=== PATIENT | female | born 1965 | race Caucasian/White ===

== ENCOUNTER 2017-04-02 18:02 | Emergency (ER) | payer OTHER ==
[~2017-04-02] VITALS: Ht 170.2 cm; Wt 69.4 kg
[~2017-04-02 18:02] MED LIST: COZAAR 25 MG TA25 M1 PO; HYDROCODON-ACE1 EAC5 PO; IBUPROFEN 800800 M1 PO; KLONOPIN0.5 MG PO; LEVAQUIN 750 M750 MG PO; LEXAPRO 10 MG T10 M2 PO; PROAIR HFA8.5 GM INH; TESSALON PERLE100 MG PO; UNICOMPLEX M TA1 TA1 PO; VITAMIN D1000 UNI1 PO; ZANAFLEX4 MG PO
[2017-04-02 19:13] VITALS: BP 130/74
[2017-12-03] MEDS ORDERED: NORCO 5-325 TA1 EACH PO (09:12)
[2017-12-03] MEDS ORDERED: NEURONTIN 300300 M1 PO (12:56)
[2017-12-03] MEDS ORDERED: LOSARTAN POTASS50 MG PO (12:57)
[2017-12-03] MEDS ORDERED: LIPITOR10 MG PO (12:57)
[2017-12-03] MEDS ORDERED: D3 + K2 DOTS 11 EACH PO (12:58)
== END 2017-04-02 19:13 | disposition home or self-care (01) ==
LOC: M.ERS 18:02
DX: S61.012A Laceration without foreign body of left thumb without damage to nail, initial encounter (principal); Z98.890 Other specified postprocedural states; F17.210 Nicotine dependence, cigarettes, uncomplicated; W18.39XA Other fall on same level, initial encounter; Y93.89 Activity, other specified; Y92.89 Other specified places as the place of occurrence of the external cause; Y99.8 Other external cause status

== ENCOUNTER 2017-04-26 17:32 | Emergency (ER) | payer OTHER ==
[~2017-04-26] VITALS: Ht 170.2 cm; Wt 72.6 kg
[2017-04-26] MEDS ORDERED: CYMBALTA30 MG PO (17:46)
[2017-04-26] MEDS ORDERED: LISINOPRIL20 MG PO (17:46)
[2017-04-26 18:30] LABS: ABSOLUTE BASOPHILS 0.1 thou/uL (0.0-0.2); ABSOLUTE EOSINOPHILS 0.2 thou/uL (0.0-0.7); ABSOLUTE MONOCYTES 0.5 thou/uL (0.0-1.2); ABSOLUTE NEUTROPHILS 3.8 thou/uL (1.6-8.1); BASOPHILS 0.9 %; EOSINOPHILS 2.5 %; HEMATOCRIT 40.9 % (37.0-47.0); HEMOGLOBIN 14.5 gm/dL (12.0-15.0); LYMPHOCYTES 30.5 %; MCH 35.4 pg (26.0-34.0); MCHC 35.4 g/dL (28.0-37.0); MONOCYTES 7.6 %; MPV 8.2 fl. (7.2-11.1); NUCLEATED RBCS 0 /100WBC; PLATELET COUNT* 325 thou/uL (150-400); POLYS 58.5 %; RBC 4.09 mil/uL (4.20-5.00); RDW-CV 12.8 % (10.5-14.5); WBC 6.5 thou/uL (4.0-11.0)
[2017-04-26 18:33] LABS: URINE BILIRUBIN NEGATIVE (Negative); URINE BLOOD TRACE (Negative); URINE CLARITY CLEAR; URINE COLOR YELLOW; URINE GLUCOSE-RANDOM NEGATIVE (Negative); URINE KETONES NEGATIVE (Negative); URINE LEUKOCYTES TRACE (Negative); URINE NITRITE NEGATIVE (Negative); URINE PROTEIN NEGATIVE (Negative); URINE SPECIFIC GRAVITY 1.025 (1.005-1.030); URINE UROBILINOGEN 0.2 E.U./dl (0.2-1.0)
[2017-04-26 18:37] LABS: AMP/METHAMP Negative (Negative); BARBITURATES Negative (Negative); BENZODIAZEPINES Negative (Negative); COCAINE Negative (Negative); METHADONE Negative (Negative); OPIATES Negative (Negative); PCP Negative (Negative); THC Negative (Negative)
[2017-04-26 18:39] LABS: ANION GAP 13 mmol/L (7-16); BUN 22 mg/dL (7-18); CALCIUM 8.6 mg/dL (8.5-10.1); CHLORIDE 101 mmol/L (98-107); CO2 23 mmol/L (21-32); CREATININE 0.9 mg/dL (0.6-1.3); GLUCOSE 110 mg/dL (70-99); POTASSIUM 3.6 mmol/L (3.5-5.1); SODIUM 137 mmol/L (136-145)
[2017-04-26 18:50] LABS: ALBUMIN 4.5 g/dL (3.4-5.0); ALKALINE PHOSPHATASE 85 U/L (46-116); LIPASE 123 U/L (73-393); NT-PRO BRAIN NAT PEPTIDE 22 pg/mL (<300); SGOT 55 U/L (15-37); SGPT 77 U/L (30-65); TOTAL BILIRUBIN 0.5 mg/dL (<0.1-1.0); TOTAL PROTEIN 7.4 g/dL (6.4-8.2); TROPONIN-I LEVEL <0.06 ng/mL (<0.06)
[2017-04-26 19:00] LABS: BACTERIA None Seen /HPF (None Seen); CASTS None Seen /LPF (None Seen); CRYSTALS None Seen /LPF (None Seen); SQUAMOUS 4-10 Moderate /LPF (0-3); URINE RBC None Seen /HPF (0-2); URINE WBC 0-5 Rare /HPF (0-5)
[2017-04-26] MEDS ORDERED: NORCO 5-325 TA1 EACH PO (19:29)
[2017-04-26 19:51] VITALS: BP 163/113
--- NOTE | 2017-04-27 11:01 | EKG ---
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 : 1965 Requested By: Adelaida Florez Order Number: [id number] MD: Edmund Schneider Measurements Intervals [place] Rate: 100 P: 68 MD: 133 QRS: 31 QRSD: 81 T: 32 QT: 336 QTc: 434 Interpretive Statements Sinus tachycardia Probable left atrial enlargement Baseline wander in lead(s) II,III,aVF,V2 No previous ECG available for comparison Electronically Signed On 04-27-2017 11:01:05 STAFF GENETIC COUNSELOR by Edmund Schneider [email or web address] <ELECTRONICALLY SIGNED> By: Edmund Schneider MD, [facility] 04/27/17 1101 1809 180 Edmund Schneider MD, FACC /EPI
[2017-12-03] MEDS ORDERED: NORCO 5-325 TA1 EACH PO (09:12)
[2017-12-03] MEDS ORDERED: NEURONTIN 300300 M1 PO (12:56)
[2017-12-03] MEDS ORDERED: LOSARTAN POTASS50 MG PO (12:57)
[2017-12-03] MEDS ORDERED: LIPITOR10 MG PO (12:57)
[2017-12-03] MEDS ORDERED: D3 + K2 DOTS 11 EACH PO (12:58)
== END 2017-04-26 19:53 | disposition home or self-care (01) ==
LOC: M.ERS 17:32
PROVIDERS: Physician Assistant
DX: S92.902A Unspecified fracture of left foot, initial encounter for closed fracture (principal); R00.2 Palpitations; F41.9 Anxiety disorder, unspecified; I10 Essential (primary) hypertension; F17.210 Nicotine dependence, cigarettes, uncomplicated; F10.99 Alcohol use, unspecified with unspecified alcohol-induced disorder; F32.9 Major depressive disorder, single episode, unspecified; Z90.49 Acquired absence of other specified parts of digestive tract; W10.8XXA Fall (on) (from) other stairs and steps, initial encounter; Y93.89 Activity, other specified; Y92.89 Other specified places as the place of occurrence of the external cause; Y99.8 Other external cause status

== ENCOUNTER → 2017-11-11 | Outpatient (CLI) | payer OTHER ==
[~2017-11-11] MED LIST changes: +BACTRIM DS TAB1 EACH PO; +CYMBALTA30 MG PO; +D3 + K2 DOTS 11 EACH PO; +FLEXERIL PO; +LIPITOR10 MG PO; +LISINOPRIL20 MG PO; +LOSARTAN POTASS50 MG PO; +NAPROSYN500 MG PO; +NEURONTIN 300300 M1 PO; +NORCO 5-325 TA1 EACH PO; +TRAMADOL 50 MG50 MG PO
== END ==
LOC: M.ULTRA 11-10 15:00 → M.RAD 11-10 15:30 → M.ULTRA 14:22
DX: Z13.820 Encounter for screening for osteoporosis (principal); M81.0 Age-related osteoporosis without current pathological fracture; I10 Essential (primary) hypertension; E78.5 Hyperlipidemia, unspecified; Z78.0 Asymptomatic menopausal state; Z98.82 Breast implant status

== ENCOUNTER → 2017-12-03 | Outpatient (CLI) | payer OTHER ==
--- NOTE | 2018-01-04 10:00 | PAINCON ---
[address] [address] PAIN MANAGEMENT CONSULTATION Name: PASCUAL MURILLO Room: [facility].#: [id number] Admission: 12/03/17 Attend Phys: Saida Wagner MD Discharge: Date of : 69 Report #: [id number] THIS REPORT FOR: //name// CC: Kerry Wagner DATE OF SERVICE: 12/03/2017 PRIMARY CARE PHYSICIAN: Kerry Dias DO CHIEF COMPLAINT: Back pain with pain down into the left leg. HISTORY OF PRESENT ILLNESS: The patient is a 52-year-old female who has a history of back pain. States that she is now having pain, which is quite problematic. It is radiating down the lower portion of her back, posterior portion of her leg in the L5-S1 distribution. Notes that the pain is quite problematic and is burning. She finds it difficult to carry on activities of daily living because of the pain. She also has pain, which involves her "entire body." Does have some problems with her neck. She has had arthritic changes such that fusion is taking place in her neck. States she has been told by her surgeon. There is no surgical intervention needed. Has pain in her legs, wrists, arms and "all joints." She describes it as severe left hip pain. Pain is worse when she is standing and walking. She is not sure of anything that makes it significantly better. Describes it as continuous, constant, shooting, cramping, aching, throbbing and tender. Rates it as a 9/10 on the worst days and an 8/10 today. MEDICATIONS: Lipitor 10 mg, Cymbalta 30 mg, Neurontin 300 mg t.i.d., losartan 50 mg, multivitamin D3/vitamin K 1000 units. PAST MEDICAL HISTORY: Epilepsy/seizures, hypertension, joint disease/arthritis. PAST SURGICAL HISTORY: Cholecystectomy, D and C x 2, carpal tunnel surgery, trigger finger surgery, breast augmentation. 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 The patient is . REVIEW OF SYSTEMS: Recent weight change, appetite change, fever/night sweats, fatigue, weakness, headaches, wears glasses/contacts, swelling of the feet, ankles, hands, loss of appetite, nausea, vomiting, frequent diarrhea, joint pain, joint stiffness, weakness of the muscles and joints, back pain, frequent and reoccurring headaches, lightheadedness, dizziness, convulsion, seizures, numbness and tingling sensation. IMAGING STUDIES: MRI of the cervical spine dated 03/01/2015[place] [address] PAIN MANAGEMENT CONSULTATION Name: PASCUAL MURILLO Room: [facility]#: [id number] Admission: 12/03/17 Attend Phys: Saida Wagner MD Discharge: Date of : 69 Report #: [id number] 1. C4-C5 posterior spurring and some uncinate changes greater on the left with bilateral facet degenerative changes. No central stenosis is seen, though there is some left lateral recess and moderate left neural foraminal narrowing. 2. C5/C6 disk space narrowing with reactive marrow changes seen. Posterior spurring is seen with the canal borderline narrowed to 1.9 cm. Facet changes seen with significant neural foraminal narrowing bilaterally. 3. C6-C7 posterior ridging and spurring with uncinate changes with canal to lower limits of normal. Facet changes are seen with the neural foramen narrowing, greater on the left. 4. C7-T1 minimal ridging seen. Cervical spondylosis with reversal of the cervical curve and mild subluxation at C4/C5 likely degenerative. Disk space narrowing and posterior ridging with reactive marrow changes, most marked at C5/C6 with C6/C7. Neural foraminal narrowing, particularly on the left at C4-C5 to C6/C7. No focal disk protrusions or intrinsic cord signal changes seen. MRI of the lumbar spine dated 12/22/2014. 1. L3-L4 loss of disk space height and disk signal was present at the L3-L4 level. Mild disk bulge is present without significant canal narrowing. AP canal diameter with well-maintained measuring 12 mm. Minimal hypertrophic facet changes were present. There is a mild lateral disk bulge, which is slightly greater on the right than the left. No significant nerve root effacement. 2. L4-L5 unremarkable. There is no disk bulge protrusion or stenosis. The facet joints are unremarkable. 3. L5-S1, there are mild central disk bulging present without protrusion or subluxation. The lateral recesses are well maintained. AP diameter was well maintained at 14 mm. DEXA BONE DENSITOMETRY FINDINGS: 1. AP lumbar spine; bone marrow density from L1/L4 correlates with a T score of -3.1 which is in the osteoporotic range and associated with a severely elevated fracture wrist. 2. Right femur; bone mineral density of the right total femur correlates with a T score of -2.5, which is in the osteoporotic range and is associated with a severely elevated fracture risk. 3. Left femur; bone density within the left femur neck correlates with a T score of -2.4, which is in the osteoporotic range associated with a moderate elevated risk of fracture. PAIN CLINIC ASSESSMENT: 1. History of osteoarthritis with some arthritic changes in her neck. The patient is not being treated for rheumatoid arthritis. 2. Height 5 feet 7 inches. Weight 167 pounds, BMI is 26. 3. Vital signs: Blood pressure 145/94, heart rate 90, respiratory rate 16, room air saturation 95%, temperature 97.9. Pain intensity 8/10. 4. Fall risk. The patient has not fallen in the last 3 months. 5. Blood thinner. The patient is on [place] [address] PAIN MANAGEMENT CONSULTATION Name: PASCUAL MURILLO Room: [facility]#: [id number] Admission: 12/03/17 Attend Phys: Saida Wagner MD Discharge: Date of : 69 Report #: [id number] 6. Hypertension. The patient is being treated for hypertension. 7. Opioid medications greater than 6 weeks. The patient is not receiving opioid medication at this juncture. 8. Risk assessment tool. 9. Functional assessment tool. 10. Recreational drug use. The patient denies use of recreational drugs. 11. Tobacco: The patient states that she is not smoking at this juncture. The patient has a 57-sykm-tozl smoking history. 12. Rarely drinks alcoholic beverages. PHYSICAL EXAMINATION: GENERAL: The patient is a well-developed, well-nourished white female. Appears her stated age. She is alert and oriented x 3. HEENT: Normocephalic, atraumatic. Extraocular eye muscles intact. Sclerae nonicteric. Mucous membranes are moist. Hearing is within normal limits. The patient has some posterior stiffness to palpation, decreased range of rotation and movement in the cervical spine. LUNGS: Clear to auscultation without rhonchi or rales. HEART: Regular rate. S1, S2. ABDOMEN: Nondistended, nontender. BACK: The patient has some diffuse lumbar paraspinous muscle tenderness to palpation. Complains of pain and discomfort in the left lower back with pain radiating down in the L5-S1 nerve root distribution. The patient is unable to stand on her toes and heels. States that she does have osteoporosis and has had some fractures in her foot. Complains of pain and discomfort in her upper arms with pain and discomfort in her wrist. Deep tendon reflexes are +3 on the left and +2 on the right, brachial radialis trace on the right. Difficult to appreciate triceps reflexes. Deep tendon reflexes are absent at the knees bilaterally, absent at the ankles. IMPRESSION: 1. Chronic pain involving "neck, back, legs, hips." 2. Epilepsy/seizures. 3. Hypertension. 4. Joint disease/arthritis. RECOMMENDATIONS: The patient states that she is having pain, which is somewhat global in nature. Pain which is most problematic at this juncture is that which is radiating down in the L5-S1 distribution on her left side with positive straight leg raise. The patient also has some pain and discomfort in the neck area. States that there is fusion is taking place on a natural basis. Her surgeon does not feel that surgery would be an option at this juncture or provide any improvement. We have discussed the possibility of an epidural steroid injection. The patient has not had an injection in this area quite some time. We will consider an injection. We explained to the patient given that she has a significant amount of pain globally, [place] [address] PAIN MANAGEMENT CONSULTATION Name: PASCUAL MURILLO Room: [facility]#: [id number] Admission: 12/03/17 Attend Phys: Saida Wagner MD Discharge: Date of : 69 Report #: [id number] prominent pain condition. IMPRESSION: Recommended treatment 1 year followup evaluation. <ELECTRONICALLY SIGNED> By: Saida Wagner MD 01/04/18 1000 [address] Wagner MD /PMT
== END ==
LOC: M.PC 04:04
DX: M54.5 Low back pain (principal); I10 Essential (primary) hypertension; G40.909 Epilepsy, unspecified, not intractable, without status epilepticus; M54.2 Cervicalgia; M19.90 Unspecified osteoarthritis, unspecified site; M79.662 Pain in left lower leg; M79.661 Pain in right lower leg; G89.29 Other chronic pain; M25.551 Pain in right hip; M25.552 Pain in left hip

== ENCOUNTER 2018-01-30 14:30 | Emergency (ER) | payer OTHER ==
[~2018-01-30] VITALS: Ht 170.2 cm; Wt 77.1 kg
[~2018-01-30 14:30] MED LIST changes: -BACTRIM DS TAB1 EACH PO; -FLEXERIL PO; -NAPROSYN500 MG PO; -TRAMADOL 50 MG50 MG PO
[2018-01-30 15:28] LABS: URINE BILIRUBIN NEGATIVE (Negative); URINE BLOOD NEGATIVE (Negative); URINE CLARITY CLEAR; URINE COLOR YELLOW; URINE GLUCOSE-RANDOM NEGATIVE (Negative); URINE KETONES NEGATIVE (Negative); URINE LEUKOCYTES-REFLEX 1+ (Negative); URINE NITRITE-REFLEX NEGATIVE (Negative); URINE PROTEIN NEGATIVE (Negative); URINE SPECIFIC GRAVITY <= 1.005 (1.005-1.030); URINE UROBILINOGEN 0.2 E.U./dl (0.2-1.0)
[2018-01-30 15:31] LABS: ABSOLUTE BASOPHILS 0.1 thou/uL (0.0-0.2); ABSOLUTE EOSINOPHILS 0.2 thou/uL (0.0-0.7); ABSOLUTE LYMPHOCYTES 2.7 thou/uL (0.8-5.3); ABSOLUTE MONOCYTES 0.5 thou/uL (0.0-1.2); ABSOLUTE NEUTROPHILS 3.8 thou/uL (1.6-8.1); BASOPHILS 0.7 %; EOSINOPHILS 3.2 %; HEMATOCRIT 39.2 % (37.0-47.0); HEMOGLOBIN 13.3 gm/dL (12.0-15.0); LYMPHOCYTES 37.6 %; MCH 34.2 pg (26.0-34.0); MCHC 33.9 g/dL (28.0-37.0); MCV 100.8 fL (80.0-100.0); MONOCYTES 7.1 %; NUCLEATED RBCS 0 /100WBC; PLATELET COUNT* 314 thou/uL (150-400); POLYS 51.4 %; RBC 3.89 mil/uL (4.20-5.00); RDW-CV 12.3 % (10.5-14.5); WBC 7.3 thou/uL (4.0-11.0)
[2018-01-30 15:55] LABS: CALCIUM 9.2 mg/dL (8.5-10.1); CREATININE 0.7 mg/dL (0.6-1.3); POTASSIUM 3.2 mmol/L (3.5-5.1)
[2018-01-30 15:56] LABS: BACTERIA-REFLEX 1-9 Few /HPF (None Seen); CRYSTALS None Seen /LPF (None Seen); MUCUS None Seen strn/LPF (None Seen); SQUAMOUS >10 Many /LPF (0-3); URINE RBC 0-2 Rare /HPF (0-2); URINE WBC-REFLEX 0-5 Rare /HPF (0-5)
[2018-01-30 15:57] LABS: CASTS None Seen /LPF (None Seen)
[2018-01-30 16:01] LABS: ALBUMIN 4.4 g/dL (3.4-5.0); TOTAL BILIRUBIN 0.7 mg/dL (<0.1-1.0); TOTAL PROTEIN 7.7 g/dL (6.4-8.2)
[2018-01-30] MEDS ORDERED: TRAMADOL 50 MG50 MG PO (16:22)
[2018-01-30] MEDS ORDERED: NAPROSYN500 MG PO (16:22)
[2018-01-30] MEDS ORDERED: FLEXERIL PO (16:22)
[2018-01-30] MEDS ORDERED: BACTRIM DS TAB1 EACH PO (16:22)
[2018-01-30 19:16] VITALS: BP 146/105
== END 2018-01-30 19:17 | disposition home or self-care (01) ==
LOC: M.ERS 14:30
PROVIDERS: Nurse Practitioner Family
DX: N30.90 Cystitis, unspecified without hematuria (principal); S39.012A Strain of muscle, fascia and tendon of lower back, initial encounter; X58.XXXA Exposure to other specified factors, initial encounter; Y93.89 Activity, other specified; Y92.89 Other specified places as the place of occurrence of the external cause; Y99.8 Other external cause status; I10 Essential (primary) hypertension; M79.7 Fibromyalgia; F32.9 Major depressive disorder, single episode, unspecified; F41.9 Anxiety disorder, unspecified; F17.210 Nicotine dependence, cigarettes, uncomplicated

== ENCOUNTER 2018-11-10 16:58 | Emergency (ER) | payer OTHER ==
[~2018-11-10] VITALS: Ht 170.2 cm; Wt 76.2 kg
[~2018-11-10 16:58] MED LIST changes: +BACTRIM DS TAB1 EACH PO; +FLEXERIL PO; +NAPROSYN500 MG PO; +TRAMADOL 50 MG50 MG PO
[2018-11-10 17:40] LABS: ABSOLUTE BASOPHILS 0.1 thou/uL (0.0-0.2); ABSOLUTE EOSINOPHILS 0.4 thou/uL (0.0-0.7); ABSOLUTE LYMPHOCYTES 2.9 thou/uL (0.8-5.3); ABSOLUTE MONOCYTES 0.5 thou/uL (0.0-1.2); ABSOLUTE NEUTROPHILS 4.2 thou/uL (1.6-8.1); EOSINOPHILS 4.5 %; HEMATOCRIT 36.5 % (37.0-47.0); HEMOGLOBIN 12.8 gm/dL (12.0-15.0); LYMPHOCYTES 36.4 %; MCH 35.5 pg (26.0-34.0); MCV 101.3 fL (80.0-100.0); MONOCYTES 5.8 %; MPV 8.1 fl. (7.2-11.1); NUCLEATED RBCS 0 /100WBC; PLATELET COUNT* 282 thou/uL (150-400); POLYS 52.3 %; RDW-CV 13.7 % (10.5-14.5); WBC 8.1 thou/uL (4.0-11.0)
[2018-11-10 17:46] LABS: ANION GAP 10 mmol/L (7-16); BUN 18 mg/dL (7-18); CALCIUM 8.5 mg/dL (8.5-10.1); CHLORIDE 105 mmol/L (98-107); CO2 28 mmol/L (21-32); CREATININE 0.8 mg/dL (0.6-1.3); GLUCOSE 103 mg/dL (70-99); POTASSIUM 3.1 mmol/L (3.5-5.1); SODIUM 143 mmol/L (136-145)
[2018-11-10 17:54] LABS: URINE BILIRUBIN NEGATIVE (Negative); URINE BLOOD NEGATIVE (Negative); URINE CLARITY CLEAR; URINE COLOR YELLOW; URINE GLUCOSE-RANDOM NEGATIVE (Negative); URINE KETONES NEGATIVE (Negative); URINE LEUKOCYTES-REFLEX NEGATIVE (Negative); URINE NITRITE-REFLEX NEGATIVE (Negative); URINE PROTEIN NEGATIVE (Negative); URINE SPECIFIC GRAVITY <= 1.005 (1.005-1.030); URINE UROBILINOGEN 0.2 E.U./dl (0.2-1.0)
[2018-11-10 17:55] LABS: ALBUMIN 4.1 g/dL (3.4-5.0); ALKALINE PHOSPHATASE 68 U/L (46-116); SGOT 29 U/L (15-37); SGPT 44 U/L (30-65); TOTAL BILIRUBIN 0.2 mg/dL (<0.1-1.0); TOTAL PROTEIN 6.9 g/dL (6.4-8.2); TROPONIN-I LEVEL <0.06 ng/mL (<0.06)
[2018-11-10 18:09] VITALS: BP 130/89
--- NOTE | 2018-11-11 09:59 | EKG ---
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
== END 2018-11-10 18:11 | disposition home or self-care (01) ==
LOC: M.ERS 16:58
PROVIDERS: Physician Assistant
DX: M79.605 Pain in left leg (principal); F10.129 Alcohol abuse with intoxication, unspecified; F41.9 Anxiety disorder, unspecified; F32.9 Major depressive disorder, single episode, unspecified; I10 Essential (primary) hypertension; M79.7 Fibromyalgia; F17.210 Nicotine dependence, cigarettes, uncomplicated; Z90.49 Acquired absence of other specified parts of digestive tract

== ENCOUNTER 2019-11-07 17:26 | Inpatient (IN) | payer OTHER ==
[~2019-11-07] VITALS: Ht 170.2 cm; Wt 82.6 kg
[2019-11-07 17:32] VITALS: BP 188/129
[2019-11-07 18:13] LABS: URINE BILIRUBIN NEGATIVE (Negative); URINE BLOOD TRACE (Negative); URINE CLARITY CLEAR; URINE COLOR YELLOW; URINE GLUCOSE-RANDOM NEGATIVE (Negative); URINE KETONES NEGATIVE (Negative); URINE LEUKOCYTES-REFLEX NEGATIVE (Negative); URINE NITRITE-REFLEX NEGATIVE (Negative); URINE PROTEIN NEGATIVE (Negative); URINE UROBILINOGEN 0.2 E.U./dl (0.2-1.0)
[2019-11-07 18:16] LABS: ABSOLUTE BASOPHILS 0.1 thou/uL (0.0-0.2); ABSOLUTE EOSINOPHILS 0.1 thou/uL (0.0-0.7); ABSOLUTE MONOCYTES 0.4 thou/uL (0.0-1.2); ABSOLUTE NEUTROPHILS 4.8 thou/uL (1.6-8.1); BASOPHILS 0.7 %; EOSINOPHILS 1.6 %; HEMATOCRIT 39.1 % (37.0-47.0); HEMOGLOBIN 14.1 gm/dL (12.0-15.0); LYMPHOCYTES 27.4 %; MCH 36.5 pg (26.0-34.0); MCHC 36.1 g/dL (28.0-37.0); MPV 8.2 fl. (7.2-11.1); NUCLEATED RBCS 0 /100WBC; PLATELET COUNT* 256 thou/uL (150-400); POLYS 65.3 %; RBC 3.87 mil/uL (4.20-5.00); WBC 7.3 thou/uL (4.0-11.0)
[2019-11-07 18:23] LABS: CALCIUM 7.7 mg/dL (8.5-10.1); CREATININE 0.9 mg/dL (0.6-1.3)
[2019-11-07 18:28] LABS: ALBUMIN 4.1 g/dL (3.4-5.0); TOTAL BILIRUBIN 0.6 mg/dL (<0.1-1.0); TOTAL PROTEIN 7.5 g/dL (6.4-8.2)
[2019-11-07 18:34] LABS: POTASSIUM 2.6 mmol/L (3.5-5.1)
[2019-11-07 22:10] VITALS: BP 142/99
[2019-11-07 22:50] VITALS: BP 168/98
[2019-11-08] MEDS ORDERED: NEXIUM20 MG PO (02:59)
[2019-11-08] MEDS ORDERED: CLONAZEPAM 0.50.5 M1 PO (03:01)
[2019-11-08 04:00] VITALS: BP 166/99
[2019-11-08 05:29] LABS: ABSOLUTE EOSINOPHILS 0.2 thou/uL (0.0-0.7); ABSOLUTE LYMPHOCYTES 2.7 thou/uL (0.8-5.3); ABSOLUTE MONOCYTES 0.4 thou/uL (0.0-1.2); ABSOLUTE NEUTROPHILS 2.7 thou/uL (1.6-8.1); BASOPHILS 0.4 %; EOSINOPHILS 3.5 %; HEMATOCRIT 36.1 % (37.0-47.0); HEMOGLOBIN 12.8 gm/dL (12.0-15.0); LYMPHOCYTES 44.8 %; MCH 36.3 pg (26.0-34.0); MCHC 35.6 g/dL (28.0-37.0); MONOCYTES 7.1 %; MPV 8.4 fl. (7.2-11.1); NUCLEATED RBCS 0 /100WBC; PLATELET COUNT* 222 thou/uL (150-400); POLYS 44.2 %; RBC 3.54 mil/uL (4.20-5.00); RDW-CV 12.8 % (10.5-14.5)
[2019-11-08 05:48] LABS: CALCIUM 7.6 mg/dL (8.5-10.1); CREATININE 0.8 mg/dL (0.6-1.3); POTASSIUM 3.3 mmol/L (3.5-5.1)
[2019-11-08 08:00] VITALS: BP 182/100
[2019-11-08 12:01] VITALS: BP 146/100
[2019-11-08] MEDS ORDERED: POTASSIUM20 PO (12:55)
[2019-11-08] MEDS ORDERED: MULTIVITAMINS1 EAC7 PO (12:55)
[2019-11-08] MEDS ORDERED: MAG-OXIDE400 MG PO (12:55)
[2019-11-08] MEDS ORDERED: VITAMIN B-1100 M2 PO (12:55)
[2019-11-08] MEDS ORDERED: FOLIC ACID1 MG PO (12:55)
[2019-11-08 13:09] LABS: ALBUMIN 3.8 g/dL (3.4-5.0); DIRECT BILIRUBIN 0.3 mg/dL (<0.1-0.3); TOTAL BILIRUBIN 1.1 mg/dL (<0.1-1.0); TOTAL PROTEIN 6.5 g/dL (6.4-8.2)
[2019-11-08 14:04] VITALS: BP 146/100
--- NOTE | 2019-11-08 17:23 | EKG ---
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 : 1965 Requested By: Fermin Alexandre Order Number: [id number] MD: Sachin Cardona Measurements Intervals [place] Rate: 94 P: 67 LA: 128 QRS: 34 QRSD: 89 T: 32 QT: 376 QTc: 471 Interpretive Statements Sinus rhythm Compared to ECG 11/10/2018 17:28:15 No significant changes Electronically Signed On 11-08-2019 17:23:17 CDT by Sachin Cardona [email or web address] <ELECTRONICALLY SIGNED> By: Sachin Cardona MD, [facility] 11/08/19 1723 180 180 Sachin Cardona MD, [facility] /EPI
== END 2019-11-08 15:00 | disposition home or self-care (01) | DRG 641 ==
LOC: M.ERS 17:26 → M.2W 19:01 → M.TBA-ER 19:01 → M.2W 22:59
PROVIDERS: Emergency Medicine Emergency Medical Services; Physician Assistant; ADMIT Internal Medicine; ATTEND Internal Medicine
DX: E87.6 Hypokalemia (principal); F41.9 Anxiety disorder, unspecified; F32.9 Major depressive disorder, single episode, unspecified; I10 Essential (primary) hypertension; E83.42 Hypomagnesemia; R20.2 Paresthesia of skin; F17.210 Nicotine dependence, cigarettes, uncomplicated; M81.0 Age-related osteoporosis without current pathological fracture; M79.7 Fibromyalgia; R94.5 Abnormal results of liver function studies; Z90.49 Acquired absence of other specified parts of digestive tract; Z79.899 Other long term (current) drug therapy; Z72.89 Other problems related to lifestyle; Z03.818 Encounter for observation for suspected exposure to other biological agents ruled out

== ENCOUNTER 2019-12-26 22:42 | Emergency (ER) | payer OTHER ==
[~2019-12-26] VITALS: Ht 170.2 cm; Wt 77.1 kg
[~2019-12-26 22:42] MED LIST changes: +CLONAZEPAM 0.50.5 M1 PO; +FOLIC ACID1 MG PO; +MAG-OXIDE400 MG PO; +MULTIVITAMINS1 EAC7 PO; +NEXIUM20 MG PO; +POTASSIUM20 PO; +VITAMIN B-1100 M2 PO
[2019-12-26] MEDS ORDERED: KLONOPIN0.5 MG PO (23:12)
[2019-12-26 23:33] VITALS: BP 158/102
== END 2019-12-26 23:35 | disposition home or self-care (01) ==
LOC: M.ERS 22:42
DX: F41.9 Anxiety disorder, unspecified (principal); F32.9 Major depressive disorder, single episode, unspecified; I10 Essential (primary) hypertension; M79.7 Fibromyalgia; M81.0 Age-related osteoporosis without current pathological fracture; F17.210 Nicotine dependence, cigarettes, uncomplicated; Z79.899 Other long term (current) drug therapy

== ENCOUNTER → 2020-01-19 | Outpatient (CLI) | payer OTHER | LOC: M.CT 01-11 16:00 | PROVIDERS: ATTEND Family Medicine | DX: K76.0 Fatty (change of) liver, not elsewhere classified (principal); K42.9 Umbilical hernia without obstruction or gangrene; N28.89 Other specified disorders of kidney and ureter; K57.30 Diverticulosis of large intestine without perforation or abscess without bleeding; M51.37 Other intervertebral disc degeneration, lumbosacral region ==

== ENCOUNTER 2020-01-20 01:24 | Emergency (ER) | payer OTHER ==
[~2020-01-20] VITALS: Ht 170.2 cm; Wt 77.1 kg
[2020-01-20 04:05] VITALS: BP 107/72
== END 2020-01-20 04:05 ==
LOC: M.ERS 01:24
DX: S60.221A Contusion of right hand, initial encounter (principal); S80.11XA Contusion of right lower leg, initial encounter; S09.90XA Unspecified injury of head, initial encounter; R07.81 Pleurodynia; I10 Essential (primary) hypertension; M79.7 Fibromyalgia; M81.0 Age-related osteoporosis without current pathological fracture; F17.210 Nicotine dependence, cigarettes, uncomplicated; Z79.899 Other long term (current) drug therapy; Z90.49 Acquired absence of other specified parts of digestive tract; W50.0XXA Accidental hit or strike by another person, initial encounter; Y93.89 Activity, other specified; Y92.89 Other specified places as the place of occurrence of the external cause; Y99.8 Other external cause status

== ENCOUNTER 2020-01-25 14:33 | Emergency (ER) | payer OTHER ==
[~2020-01-25] VITALS: Ht 170.2 cm; Wt 81.7 kg
[2020-01-25] MEDS ORDERED: XANAX 0.5 MG0.5 MG PO (16:35)
[2020-01-25 16:42] VITALS: BP 130/72
[2020-01-26] MEDS ORDERED: VITAMIN D3250 MC1 PO (23:16)
== END 2020-01-25 16:43 | disposition home or self-care (01) ==
LOC: M.ERS 14:33
DX: F41.9 Anxiety disorder, unspecified (principal); I10 Essential (primary) hypertension; M79.7 Fibromyalgia; F17.210 Nicotine dependence, cigarettes, uncomplicated; Z90.49 Acquired absence of other specified parts of digestive tract

== ENCOUNTER 2020-01-26 23:03 | Emergency (ER) | payer OTHER ==
[~2020-01-26] VITALS: Ht 170.2 cm; Wt 80.7 kg
[~2020-01-26 23:03] MED LIST changes: +XANAX 0.5 MG0.5 MG PO
[2020-01-26 23:09] VITALS: BP 196/117
[2020-01-26] MEDS ORDERED: VITAMIN D3250 MC1 PO (23:16)
[2020-01-27 01:20] LABS: ABSOLUTE BASOPHILS 0.1 thou/uL (0.0-0.2); ABSOLUTE EOSINOPHILS 0.2 thou/uL (0.0-0.7); ABSOLUTE LYMPHOCYTES 2.9 thou/uL (0.8-5.3); ABSOLUTE MONOCYTES 0.4 thou/uL (0.0-1.2); ABSOLUTE NEUTROPHILS 3.3 thou/uL (1.6-8.1); BASOPHILS 1.2 %; EOSINOPHILS 3.3 %; HEMATOCRIT 40.7 % (37.0-47.0); HEMOGLOBIN 13.7 gm/dL (12.0-15.0); LYMPHOCYTES 41.6 %; MCH 35.2 pg (26.0-34.0); MCHC 33.6 g/dL (28.0-37.0); MCV 104.6 fL (80.0-100.0); MONOCYTES 5.6 %; MPV 7.5 fl. (7.2-11.1); NUCLEATED RBCS 0 /100WBC; PLATELET COUNT* 370 thou/uL (150-400); POLYS 48.3 %; RBC 3.89 mil/uL (4.20-5.00); RDW-CV 14.2 % (10.5-14.5); WBC 6.9 thou/uL (4.0-11.0)
[2020-01-27 01:27] LABS: CALCIUM 7.8 mg/dL (8.5-10.1); CREATININE 0.8 mg/dL (0.6-1.3); POTASSIUM 3.2 mmol/L (3.5-5.1)
[2020-01-27 01:31] LABS: ALBUMIN 3.7 g/dL (3.4-5.0); TOTAL BILIRUBIN 0.6 mg/dL (<0.1-1.0); TOTAL PROTEIN 7.3 g/dL (6.4-8.2)
[2020-01-29] MEDS ORDERED: MEDROLDOSEPACK PO (06:28)
[2020-01-29] MEDS ORDERED: VENTOLIN HFA 1818 GM INH (06:28)
== END 2020-01-27 01:30 | disposition home or self-care (01) ==
LOC: M.ERS 23:03
PROVIDERS: Emergency Medicine Emergency Medical Services
DX: F41.9 Anxiety disorder, unspecified (principal); I10 Essential (primary) hypertension; M79.7 Fibromyalgia; M81.0 Age-related osteoporosis without current pathological fracture; F17.210 Nicotine dependence, cigarettes, uncomplicated; Z79.899 Other long term (current) drug therapy; Z90.49 Acquired absence of other specified parts of digestive tract

== ENCOUNTER 2020-02-11 13:41 | Emergency (ER) | payer OTHER ==
[~2020-02-11] VITALS: Ht 170.2 cm; Wt 78.5 kg
[~2020-02-11 13:41] MED LIST changes: +MEDROLDOSEPACK PO; +VENTOLIN HFA 1818 GM INH; +VITAMIN D3250 MC1 PO
[2020-02-11] MEDS ORDERED: HYDROXYZINE HCL25 M2 PO (13:57)
[2020-02-11] MEDS ORDERED: DESYREL150 MG PO (13:57)
[2020-02-11 14:44] LABS: ABSOLUTE BASOPHILS 0.1 thou/uL (0.0-0.2); ABSOLUTE EOSINOPHILS 0.2 thou/uL (0.0-0.7); ABSOLUTE LYMPHOCYTES 1.5 thou/uL (0.8-5.3); ABSOLUTE MONOCYTES 0.4 thou/uL (0.0-1.2); ABSOLUTE NEUTROPHILS 2.3 thou/uL (1.6-8.1); BASOPHILS 1.3 %; HEMATOCRIT 38.8 % (37.0-47.0); HEMOGLOBIN 13.1 gm/dL (12.0-15.0); LYMPHOCYTES 33.6 %; MCHC 33.8 g/dL (28.0-37.0); MCV 106.5 fL (80.0-100.0); MPV 7.9 fl. (7.2-11.1); NUCLEATED RBCS 0 /100WBC; PLATELET COUNT* 382 thou/uL (150-400); POLYS 52.1 %; RBC 3.64 mil/uL (4.20-5.00); RDW-CV 14.1 % (10.5-14.5); WBC 4.5 thou/uL (4.0-11.0)
[2020-02-11 14:54] LABS: APTT 22.9 Seconds (25.0-31.3)
[2020-02-11 14:55] LABS: CALCIUM 8.5 mg/dL (8.5-10.1); CREATININE 0.9 mg/dL (0.6-1.3); POTASSIUM 3.7 mmol/L (3.5-5.1)
[2020-02-11 15:06] LABS: ALBUMIN 3.8 g/dL (3.4-5.0); TOTAL BILIRUBIN 0.5 mg/dL (<0.1-1.0); TOTAL PROTEIN 7.4 g/dL (6.4-8.2)
[2020-02-11 15:40] LABS: URINE BILIRUBIN NEGATIVE (Negative); URINE BLOOD NEGATIVE (Negative); URINE CLARITY CLEAR; URINE COLOR YELLOW; URINE GLUCOSE-RANDOM NEGATIVE (Negative); URINE KETONES NEGATIVE (Negative); URINE LEUKOCYTES-REFLEX NEGATIVE (Negative); URINE NITRITE-REFLEX NEGATIVE (Negative); URINE PROTEIN NEGATIVE (Negative); URINE UROBILINOGEN 0.2 E.U./dl (0.2-1.0)
[2020-02-11] MEDS ORDERED: ZOFRAN ODT4 MG DISSOLVE (16:04)
[2020-02-11 16:14] VITALS: BP 139/77
--- NOTE | 2020-02-14 08:37 | EKG ---
[place] [address] ELECTROCARDIOGRAM REPORT Name: PASCUAL MURILLO Room: 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[facility] : 1965 Requested By: Fermin Alexandre Order Number: [id number] MD: Jonathan Kendall Measurements Intervals [place] Rate: 101 P: 50 [place]: 140 QRS: 38 QRSD: 78 T: 37 QT: 333 QTc: 432 Interpretive Statements Sinus tachycardia Borderline low voltage, extremity leads Compared to ECG 11/07/2019 18:02:16 Sinus rhythm no longer present Electronically Signed On 02-14-2020 8:37:10 RESOURCE PROTECTION SPECIALIST by Jonathan Kendall [email or web address] <ELECTRONICALLY SIGNED> By: Adebayo Kendall MD, [facility] 02/14/20 0837 1423 1423 Adebayo Kendall MD, [facility] /EPI
== END 2020-02-11 16:15 | disposition home or self-care (01) ==
LOC: M.ERS 13:41
PROVIDERS: Emergency Medicine Emergency Medical Services
DX: R10.9 Unspecified abdominal pain (principal); R05 Cough; R25.1 Tremor, unspecified; J44.9 Chronic obstructive pulmonary disease, unspecified; I10 Essential (primary) hypertension; M79.7 Fibromyalgia; M81.0 Age-related osteoporosis without current pathological fracture; F17.210 Nicotine dependence, cigarettes, uncomplicated; Z90.49 Acquired absence of other specified parts of digestive tract; Z79.899 Other long term (current) drug therapy

== ENCOUNTER 2020-02-11 22:43 | Emergency (ER) | payer OTHER ==
[~2020-02-11] VITALS: Ht 170.2 cm; Wt 77.1 kg
[~2020-02-11 22:43] MED LIST changes: +DESYREL150 MG PO; +HYDROXYZINE HCL25 M2 PO; +ZOFRAN ODT4 MG DISSOLVE
[2020-02-11 23:18] LABS: URINE BILIRUBIN NEGATIVE (Negative); URINE BLOOD TRACE (Negative); URINE CLARITY CLEAR; URINE COLOR STRAW; URINE GLUCOSE-RANDOM NEGATIVE (Negative); URINE KETONES NEGATIVE (Negative); URINE LEUKOCYTES-REFLEX NEGATIVE (Negative); URINE NITRITE-REFLEX NEGATIVE (Negative); URINE PROTEIN NEGATIVE (Negative); URINE SPECIFIC GRAVITY <= 1.005 (1.005-1.030); URINE UROBILINOGEN 0.2 E.U./dl (0.2-1.0)
[2020-02-11 23:24] LABS: AMP/METHAMP Negative (Negative); BARBITURATES Negative (Negative); BENZODIAZEPINES Negative (Negative); COCAINE Negative (Negative); METHADONE Negative (Negative); OPIATES Negative (Negative); PCP Negative (Negative); THC Negative (Negative)
[2020-02-11 23:48] LABS: ABSOLUTE BASOPHILS 0.1 thou/uL (0.0-0.2); ABSOLUTE EOSINOPHILS 0.3 thou/uL (0.0-0.7); ABSOLUTE LYMPHOCYTES 2.6 thou/uL (0.8-5.3); ABSOLUTE MONOCYTES 0.7 thou/uL (0.0-1.2); ABSOLUTE NEUTROPHILS 3.6 thou/uL (1.6-8.1); BASOPHILS 0.7 %; EOSINOPHILS 3.8 %; LYMPHOCYTES 36.2 %; MCH 35.7 pg (26.0-34.0); MCHC 34.1 g/dL (28.0-37.0); MCV 104.9 fL (80.0-100.0); MONOCYTES 9.2 %; MPV 8.3 fl. (7.2-11.1); NUCLEATED RBCS 0 /100WBC; PLATELET COUNT* 426 thou/uL (150-400); POLYS 50.1 %; RBC 3.63 mil/uL (4.20-5.00); RDW-CV 13.6 % (10.5-14.5); WBC 7.3 thou/uL (4.0-11.0)
[2020-02-11 23:59] LABS: CALCIUM 8.4 mg/dL (8.5-10.1); CREATININE 0.8 mg/dL (0.6-1.3); POTASSIUM 3.5 mmol/L (3.5-5.1)
[2020-02-12 00:03] LABS: ALBUMIN 3.8 g/dL (3.4-5.0); TOTAL BILIRUBIN 0.3 mg/dL (<0.1-1.0); TOTAL PROTEIN 7.5 g/dL (6.4-8.2)
[2020-02-12 01:56] VITALS: BP 127/79
== END 2020-02-12 03:45 | disposition home or self-care (01) ==
LOC: M.ERS 22:43
PROVIDERS: Emergency Medicine
DX: F10.920 Alcohol use, unspecified with intoxication, uncomplicated (principal); R10.13 Epigastric pain; R06.02 Shortness of breath; R05 Cough; J44.9 Chronic obstructive pulmonary disease, unspecified; F41.9 Anxiety disorder, unspecified; F32.9 Major depressive disorder, single episode, unspecified; I10 Essential (primary) hypertension; M79.7 Fibromyalgia; M81.0 Age-related osteoporosis without current pathological fracture; F17.210 Nicotine dependence, cigarettes, uncomplicated; Z90.49 Acquired absence of other specified parts of digestive tract; Z79.899 Other long term (current) drug therapy

== ENCOUNTER 2020-02-19 20:58 | Inpatient (IN) | payer OTHER ==
[~2020-02-19] VITALS: Ht 170.2 cm; Wt 81.2 kg
--- NOTE | ~2020-02-19 | PROC ---
[address] [address] PROCEDURE REPORT Name: PASCUAL MURILLO Room: [address] IN .R.#: [id number] Admission: 02/20/20 Attend Phys: Kary Victor MD Discharge: Date of : 69 Report #: [id number] THIS REPORT FOR: //name// cc: Kerry Dias Linda J. DO ~ For GI report, please see the Provation report in Perceptive 7 content. By: [id number] Records Staff [facility] /SANDIE
[2020-02-19 21:05] VITALS: BP 169/113
[2020-02-19 21:16] LABS: ABSOLUTE BASOPHILS 0.1 thou/uL (0.0-0.2); ABSOLUTE EOSINOPHILS 0.1 thou/uL (0.0-0.7); ABSOLUTE LYMPHOCYTES 2.9 thou/uL (0.8-5.3); ABSOLUTE MONOCYTES 0.4 thou/uL (0.0-1.2); BASOPHILS 1.4 %; EOSINOPHILS 1.4 %; HEMATOCRIT 43.6 % (37.0-47.0); HEMOGLOBIN 15.1 gm/dL (12.0-15.0); LYMPHOCYTES 38.6 %; MCH 35.4 pg (26.0-34.0); MCHC 34.6 g/dL (28.0-37.0); MCV 102.2 fL (80.0-100.0); MONOCYTES 5.7 %; MPV 8.3 fl. (7.2-11.1); NUCLEATED RBCS 0 /100WBC; PLATELET COUNT* 371 thou/uL (150-400); POLYS 52.9 %; RBC 4.27 mil/uL (4.20-5.00); RDW-CV 13.5 % (10.5-14.5); WBC 7.6 thou/uL (4.0-11.0)
[2020-02-19 21:30] LABS: CALCIUM 8.8 mg/dL (8.5-10.1); CREATININE 0.8 mg/dL (0.6-1.3); POTASSIUM 3.6 mmol/L (3.5-5.1)
[2020-02-19 21:34] LABS: ALBUMIN 4.7 g/dL (3.4-5.0); MAGNESIUM 1.5 mg/dL (1.8-2.4); TOTAL BILIRUBIN 0.6 mg/dL (<0.1-1.0); TOTAL PROTEIN 8.8 g/dL (6.4-8.2)
[2020-02-20] VITALS (7 sets, daily range): BP systolic 103–184; BP diastolic 63–112
[2020-02-20] MEDS ORDERED: PROTONIX40 MG PO (00:31)
[2020-02-20] MEDS ORDERED: CARAFATE 1 GM TA1 GM PO (00:31)
[2020-02-20 01:05] LABS: URINE BILIRUBIN NEGATIVE (Negative); URINE BLOOD NEGATIVE (Negative); URINE CLARITY CLEAR; URINE COLOR YELLOW; URINE GLUCOSE-RANDOM NEGATIVE (Negative); URINE KETONES NEGATIVE (Negative); URINE LEUKOCYTES-REFLEX NEGATIVE (Negative); URINE NITRITE-REFLEX NEGATIVE (Negative); URINE PROTEIN NEGATIVE (Negative); URINE UROBILINOGEN 0.2 E.U./dl (0.2-1.0)
--- NOTE | 2020-02-20 07:05 | NUR ---
PT ARRIVED TO ROOM 225 FROM ED AT 0415. ST ON MANAGER RESEARCH DEVELOPMENT. PT ANXIOUS AT START OF SHIFT. HIGH FALL PRECAUTIONS IN PLACE, CALL LIGHT WITHIN REACH.
[2020-02-20 08:06] LABS: AMP/METHAMP Negative (Negative); BARBITURATES Negative (Negative); BENZODIAZEPINES Negative (Negative); COCAINE Negative (Negative); METHADONE Negative (Negative); OPIATES Negative (Negative); PCP Negative (Negative); THC Negative (Negative)
[2020-02-20 08:15] LABS: INR 1.1; PROTIME 11.9 Seconds (9.20-11.50)
[2020-02-20 08:16] LABS: CALCIUM 7.6 mg/dL (8.5-10.1); PHOSPHORUS* 3.4 mg/dL (2.5-4.9)
--- NOTE | 2020-02-20 13:40 | NUR ---
CM SPOKE TO THE PT TO DISCUSS CM ASSESSMENT. 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 PT USES 0 DME. PT HAS 0 HX OF HH OR SNF. CM OFFERED PT ETOH RESOURCES. PT DECLINED. CM WILL REMAIN AVAILABLE TO ASSIST AND FOLLOW NEEDED.
--- NOTE | 2020-02-20 14:34 | NUR ---
ASSUMED CARE OF PATIENT THIS AM AT 0730. PATIENT IS ALERT, ORIENTED AND ANXIOUS. SHE C/O ABD PAIN. TELE SHOWS ST. PATIENT MEDICATED FOR PAIN AND ETOH W/D THROUGHOUT THE DAY. BED ALARM IS ON BUT PATIENT NONCOMPLIANT AND GETTING UP ANYWAY. IV PULLED OUT BY PATIENT X 1. PATIENT IS STILL ON CLEAR LIQUIDS. NO N/V TODAY. PATIENT WAS INCONTINETNT OF LIQUID STOOL X 1. SHE STATED HER PAIN WAS DECREASED. NO FALLS OR INJURY.
[2020-02-21 00:23] VITALS: BP 150/94
[2020-02-21 04:16] VITALS: BP 155/100
[2020-02-21 04:35] LABS: ABSOLUTE EOSINOPHILS 0.2 thou/uL (0.0-0.7); ABSOLUTE MONOCYTES 0.4 thou/uL (0.0-1.2); ABSOLUTE NEUTROPHILS 2.6 thou/uL (1.6-8.1); BASOPHILS 0.5 %; EOSINOPHILS 3.1 %; HEMATOCRIT 33.3 % (37.0-47.0); LYMPHOCYTES 38.2 %; MCH 35.5 pg (26.0-34.0); MCHC 34.3 g/dL (28.0-37.0); MCV 103.3 fL (80.0-100.0); MONOCYTES 7.8 %; NUCLEATED RBCS 0 /100WBC; POLYS 50.4 %; RBC 3.23 mil/uL (4.20-5.00); RDW-CV 13.2 % (10.5-14.5); WBC 5.1 thou/uL (4.0-11.0)
[2020-02-21 05:21] LABS: CALCIUM 8.1 mg/dL (8.5-10.1); CREATININE 0.7 mg/dL (0.6-1.3); HEMOGLOBIN 11.4 gm/dL (12.0-15.0); PLATELET COUNT* 195 thou/uL (150-400); POTASSIUM 3.2 mmol/L (3.5-5.1)
--- NOTE | 2020-02-21 06:30 | NUR ---
ASSUMED PT CARE AT 1915. NURSING ASSESSMENT COMPLETED AT START OF SHIFT. PT ANXIOUS THIS SHIFT, C/O NAUSEA AND ABDOMINAL PAIN THROUGHOUT SHIFT. PRN ATIVAN AND ZOFRAN ADMINISTERED THIS SHIFT. CIWA SCORES 8-16. HOURLY ROUNDING COMPLETED. HIGH FALL PRECAUTIONS IN PLACE. CALL LIGHT WITHIN REACH.
--- NOTE | 2020-02-21 13:04 | NUR ---
CM INFORMED DURING PRIME ROUNDING OF THE PLAN OF CARE FOR THE PT INCLUDING PENDING GI CONSULT AND PLAN FOR PT TO HAVE EGD AND POSSIBLY D/C TOMORROW. CM WILL REMAIN AVAILABLE TO ASSIST AND FOLLOW NEEDED.
[2020-02-21 13:08] VITALS: BP 178/116
--- NOTE | 2020-02-21 13:47 | NUR ---
PT RETURN FROM U/S
--- NOTE | 2020-02-21 14:21 | CON ---
[address] [address] CONSULTATION Name: PASCUAL MURILLO Room: [address] IN .R.#: [id number] Admission: 02/20/20 Attend Phys: Kary Victor MD Discharge: Date of : 69 Report #: [id number] THIS REPORT FOR: //name// cc: Kerry Dias Linda J. DO ~ DATE OF SERVICE: 02/21/2020 PRIMARY CARE PHYSICIAN: Kerry Dias DO Please note at the time of this dictation, the patient was seen and physically examined by myself. REASON FOR CONSULTATION: Abdominal pain. HISTORY OF PRESENT ILLNESS: This is a 55-year-old female who presented to the emergency room after noting that she has had several Emergency Room visits over the last several months for similar complaints. The patient at this time is having abdominal pain. She states it is just unbearable all throughout her entire abdomen. She is also having a great deal of difficulty swallowing and burning throughout her esophagus and upper abdomen. She denies any NSAID use; however, she continues to drink at least a pint of vodka a day. She states she does due to her severe anxiety, which has been getting worse and as long as the hurting. She is currently only taking Nexium 20 mg daily. She denies any nausea or vomiting of any bright red blood or coffee-ground emesis. She states her bowels move daily, soft and formed at least once, mostly twice a day when she is drinking. She denies any bright red blood or melena in her stools at this time or any change in her stool consistency. The patient underwent an EGD and colonoscopy with Dr. Diaz back in 2015 with no mention of her drinking at that time. She was noted to have a normal upper scope. Recommended because of her ongoing reflux symptoms to continue with Protonix 40 mg daily indefinitely. Her small bowel biopsies were negative for celiac. She had long-term use of NSAIDs at that time and she has since quit taking them. Colonoscopy was completely normal. She was recommended to take Colestid for her diarrhea at that time and a 5-year recall given her family history of colon cancer. ALLERGIES: No known drug allergies. MEDICATIONS: From home include multivitamin, potassium, Zofran, Nexium, clonazepam, vitamin D, Desyrel, hydroxyzine, Lipitor, losartan, and Cymbalta. PAST MEDICAL HISTORY: COPD, anxiety, depression, hypertension, fibromyalgia, osteoporosis, [place] [address] CONSULTATION Name: PASCUAL MURILLO Room: [address]#: [id number] Admission: 02/20/20 Attend Phys: Kary Victor MD Discharge: Date of : 69 Report #: [id number] PAST SURGICAL HISTORY: Cholecystectomy, D and C. FAMILY HISTORY: Father significant for colon cancer. SOCIAL HISTORY: Denies any recreational drug use. She continues to smoke half a pack of cigarettes daily and daily use of alcohol for the last many years. She is currently drinking a pint of vodka daily. REVIEW OF SYSTEMS: Twelve-point review of systems is essentially negative except what is mentioned in the HPI. PHYSICAL EXAMINATION: VITAL SIGNS: Temperature 36.7, pulse 119, respirations 21, blood pressure 155/100. HEART: Regular rate and rhythm, tachycardic. LUNGS: Diminished, but clear. ABDOMEN: Little distended, is soft with generalized tenderness noted throughout. LABORATORY DATA: Hemoglobin is 11.4, white count is 5.1, platelets are 145. GFR is 88. PT is 11.9, INR is 1.1. LFTs: Total bilirubin 0.6, alkaline phosphatase 214, ALT 144, AST is 229. Ammonia was 55 and her alcohol level on admission was 112. She had a CT scan earlier in the month in one of her ER visits that showed a gastroenteritis and mild enterocolitis, but otherwise normal. Liver did show diffuse infiltration of fat. She had an ultrasound done back in October of this year that was consistent with fatty liver and enlargement of her size. IMPRESSION: 1. Elevated LFTs. 2. Dysphagia. 3. Alcohol abuse, ongoing. 4. Abdominal pain, diffuse. 5. Anxiety. 6. Family history of father with colon cancer. PLAN: 1. EGD tomorrow with Dr. Viera. 2. Abdominal ultrasound with Dopplers today. 3. Continue her Protonix b.i.d. 4. Further recommendations to be made after the EGD. 5. Her colonoscopy is not due until 2020. Thank you for allowing us to participate in this patient's care. Please do not [address] [place] [address] CONSULTATION Name: PASCUAL MURILLO Room: [address] IN M.R.#: [id number] Admission: 02/20/20 Attend Phys: Kary Victor MD Discharge: Date of : 69 Report #: [id number] hesitate to call with any questions in regard to this consult. Agree with above assessment and plan by Aleyda Amaro. <ELECTRONICALLY SIGNED> By: Filemon Viera MD 02/21/20 1421 1140 1207Filemon Viera MD /nt
[2020-02-21 15:33] VITALS: BP 150/93
[2020-02-21 19:30] VITALS: BP 152/105
[2020-02-21 23:53] VITALS: BP 174/115
[2020-02-22 04:00] VITALS: BP 184/109
[2020-02-22 04:04] LABS: ABSOLUTE EOSINOPHILS 0.2 thou/uL (0.0-0.7); ABSOLUTE LYMPHOCYTES 2.6 thou/uL (0.8-5.3); ABSOLUTE MONOCYTES 0.4 thou/uL (0.0-1.2); ABSOLUTE NEUTROPHILS 2.4 thou/uL (1.6-8.1); BASOPHILS 0.4 %; EOSINOPHILS 3.4 %; HEMATOCRIT 33.2 % (37.0-47.0); HEMOGLOBIN 11.5 gm/dL (12.0-15.0); LYMPHOCYTES 46.7 %; MCH 36.3 pg (26.0-34.0); MCHC 34.8 g/dL (28.0-37.0); MCV 104.5 fL (80.0-100.0); MONOCYTES 6.8 %; NUCLEATED RBCS 0 /100WBC; PLATELET COUNT* 197 thou/uL (150-400); POLYS 42.7 %; RBC 3.18 mil/uL (4.20-5.00); RDW-CV 13.4 % (10.5-14.5); WBC 5.6 thou/uL (4.0-11.0)
[2020-02-22 04:21] LABS: ALBUMIN 4.1 g/dL (3.4-5.0); CREATININE 0.7 mg/dL (0.6-1.3); MAGNESIUM 1.4 mg/dL (1.8-2.4); PHOSPHORUS* 2.8 mg/dL (2.5-4.9); POTASSIUM 3.7 mmol/L (3.5-5.1); TOTAL BILIRUBIN 1.1 mg/dL (<0.1-1.0); TOTAL PROTEIN 7.5 g/dL (6.4-8.2)
--- NOTE | 2020-02-22 07:05 | NUR ---
ASSUMED PT CARE AT 1930. NURSING ASSESSMENT COMPLETED AT START OF SHIFT. ST ON TRANSCRIPTIONIST. HIGH FALL PRECAUTIONS IN PLACE. HOURLY ROUNDING COMPLETED. NPO AFTER MIDNIGHT FOR EGD. CALL LIGHT WITHIN REACH.
[2020-02-22 08:00] VITALS: BP 159/98
[2020-02-22 16:06] VITALS: BP 115/56
--- NOTE | 2020-02-22 17:53 | NUR ---
ASSUMED PT CARE AT 0730, PT AOX4 BUT BECAME INCREASINGLY CONFUSED THE DAY HAS GONE ON. C/O PAIN AND ANXIETY THROUGHOUT SHIFT TREATED W/ PRN OXYCODONE AND ATIVAN. ALSO HAD SOME C/O NAUSEA THIS MORNING TREATED W/ ZOFRAN. PT HAD EGD THIS MORNING, DIET RESUMED AFTERWARDS, PT TOLERATING WELL. PT GOAL IS TO CONTINUE TO WORK ON ANXIETY AND PAIN MANAGEMENT. CIWA SCORE 21 THIS SHIFT. AM ASSESSMENT CHARTED, MEDS PER MAR, HOURLY ROUNDING OBSERVED, FALL PRECAUTIONS IN PLACE, CALL LIGHT W/IN REACH.
[2020-02-22 20:00] VITALS: BP 113/37; BP 135/94
[2020-02-23] VITALS (7 sets, daily range): BP systolic 112–166; BP diastolic 68–117
[2020-02-23 04:33] LABS: ABSOLUTE EOSINOPHILS 0.2 thou/uL (0.0-0.7); ABSOLUTE MONOCYTES 0.4 thou/uL (0.0-1.2); ABSOLUTE NEUTROPHILS 3.5 thou/uL (1.6-8.1); BASOPHILS 0.4 %; EOSINOPHILS 3.1 %; HEMATOCRIT 30.3 % (37.0-47.0); HEMOGLOBIN 10.4 gm/dL (12.0-15.0); MCH 36.2 pg (26.0-34.0); MCHC 34.1 g/dL (28.0-37.0); MONOCYTES 5.9 %; MPV 9.4 fl. (7.2-11.1); NUCLEATED RBCS 0 /100WBC; PLATELET COUNT* 161 thou/uL (150-400); POLYS 57.6 %; RBC 2.86 mil/uL (4.20-5.00); RDW-CV 13.4 % (10.5-14.5)
[2020-02-23 05:05] LABS: ALBUMIN 3.6 g/dL (3.4-5.0); CALCIUM 8.4 mg/dL (8.5-10.1); CREATININE 0.7 mg/dL (0.6-1.3); POTASSIUM 3.8 mmol/L (3.5-5.1); TOTAL BILIRUBIN 0.6 mg/dL (<0.1-1.0); TOTAL PROTEIN 6.7 g/dL (6.4-8.2)
--- NOTE | 2020-02-23 06:46 | NUR ---
ASSUMED PT'S CARE @ 1900. ALERT AND ORIENTED X3. FORGETFUL OF DATE. PT SLEPT OFF AND ON. TOOK MEDS WHOLE. PT VERY ANXIOUS AND WORRIED ABOUT PAYING BILLS AND FIGURING OUT WHERE TO LIVE. PT'S SISTER MIKAELA JANE CALLED ASKING INFORMATION ABOUT PT. PT VOICED APPROVAL TO GIVE INFORMATION TO SISTER. PT'S SISTER UPDATED ON WHATS GOING ON. PT'S SISTER VOICED THAT THEIR DAD AND DAD'S DAD BOTH OF COLON CA, WHILE MOM OD UTERINE SARCOMA. PT VOICED THAT SHE WILL BE CALLING BACK DURING THE DAY TO CHECK IN ON PT. FALL PRECAUTION IN PLACE. PT MAINTAINED CIWA OF 8 THIS SHIFT. CALL LIGHT WITHIN REACH. WILL CONTINUE TO MONITOR.
--- NOTE | 2020-02-23 15:41 | NUR ---
CM INFORMED DURING PRIME ROUNDING OF THE PLAN OF CARE FOR THE PT INCLUDING PLAN FOR CM TO DISCUSS ACOHOL REHAB AT D/C. CM TO PROVIDE PT WITH COMMUNITY RESOURCE LIST. CM WILL REMAIN AVAILABLE TO ASSIST AND FOLLOW NEEDED.
--- NOTE | 2020-02-23 18:24 | NUR ---
ASSUMED PT CARE AT 0730, PT AOX4 AND C/O PAIN AND NAUSEA AND ANXIETY THROUGHOUT SHIFT. PAIN MEDS DC'D AND NON-PHARM MEASURES USED LIKE DIMMING LIGHTS, DISTRACTION, COMFORT FOODS AND WARM BLANKETS. PT GIVEN ANXIETY AND NAUSEA MEDS MULTIPLE TIMES TODAY. PT GOAL IS TO KEEP ANXIETY, PAIN AND NAUSEA UNDER CONTROL. PT VOMITED A FEW TIMES TODAY WELL. AM ASSESSMENT CHARTED, MEDS PER MAY, HOURLY ROUNDING OBSERVED, FALL PRECAUTIONS IN PLACE, CALL LIGHT W/IN REACH.
[2020-02-24 04:56] LABS: CALCIUM 9.2 mg/dL (8.5-10.1); CREATININE 0.8 mg/dL (0.6-1.3); POTASSIUM 4.5 mmol/L (3.5-5.1)
[2020-02-24 05:15] LABS: ABSOLUTE EOSINOPHILS 0.1 thou/uL (0.0-0.7); ABSOLUTE LYMPHOCYTES 1.5 thou/uL (0.8-5.3); ABSOLUTE MONOCYTES 0.4 thou/uL (0.0-1.2); ABSOLUTE NEUTROPHILS 3.3 thou/uL (1.6-8.1); BASOPHILS 0.4 %; EOSINOPHILS 2.3 %; HEMATOCRIT 29.1 % (37.0-47.0); LYMPHOCYTES 28.1 %; MCH 35.7 pg (26.0-34.0); MCHC 34.4 g/dL (28.0-37.0); MONOCYTES 7.4 %; MPV 9.2 fl. (7.2-11.1); NUCLEATED RBCS 0 /100WBC; PLATELET COUNT* 171 thou/uL (150-400); POLYS 61.8 %; RDW-CV 13.8 % (10.5-14.5); WBC 5.3 thou/uL (4.0-11.0)
[2020-02-24 05:16] VITALS: BP 131/85
[2020-02-24 07:30] VITALS: BP 102/66
[2020-02-24] MEDS ORDERED: PROTONIX40 M2 PO (09:43)
[2020-02-24 11:10] VITALS: BP 102/66
[2020-02-24 11:14] VITALS: BP 102/66
--- NOTE | 2020-02-24 16:06 | PATH ---
[address] [address] PATHOLOGY RPT PROCEDURE Name: PAULA YIP Room: [address] IN ..#: [id number] Admission: 02/20/20 Date of : 69 Discharge: 02/24/20 Report #: [id number] Path Case #: [id number] [facility] Accession Number: [id number] . 01 Material submitted: . stomach - GASTRIC BIOPSY FOR H. PYLORI . 01 Clinician provided ICD-10: K29.20 . 01 Clinical history: . HTN URGENCY, ETOH, ALCOHOLIC GASTRITIS, HYPOMAGNESIUM . 02 Diagnosis: Gastric biopsy: - Moderate nonspecific chronic gastritis, negative for Helicobacter pylori organisms and dysplasia. (DAMARIS:danuta; 02/24/2020) . Special stain: H. pylori immuno QMS 02/24/2020 1512 Local . 02 Electronically signed: . Maulik Zavaleta MD, Pathologist NPI- [id number] . 01 Gross description: . The specimen is received in formalin, labeled "Paula Yip, gastric biopsy" and consists of 2 fragments of pink-pérez tissue measuring 0.2 x 0.2 cm and 0.3 x 0.3 cm which are entirely submitted in A1. (SDY; 02/23/2020) SYU/SYU 02/23/2020 1615 Local . 02 Pathologist provided ICD-10: K29.50 . 02 CPT . 302096, [id number] Specimen Comment: A courtesy copy of this report has been sent to [phone] Specimen Comment: [phone], Specimen Comment: Report sent to ,DR ALBARRAN / DR ANTONIO Performed at: [address] [id number] MD Mahad Ellington MD Phone: [phone] Performed at: [address] [place] [address] PATHOLOGY RPT PROCEDURE Name: PAULA YIP Room: [address] IN ..#: [id number] Admission: 02/20/20 Date of : 69 Discharge: 02/24/20 Report #: [id number] Path Case #: [id number] [address] [facility], [place] [id number] MD Maulik Zavaleta MD Phone: [phone]
== END 2020-02-24 14:58 | disposition home or self-care (01) | DRG 392 ==
LOC: M.ERS 20:58 → M.2W 02-20 03:03 → M.TBA-ER 02-20 03:03 → M.2W 02-20 04:28
PROVIDERS: Emergency Medicine; Internal Medicine; ADMIT Internal Medicine; ATTEND Internal Medicine
PROC: 0DB68ZX Excision of Stomach, Via Natural or Artificial Opening Endoscopic, Diagnostic (ICD-10-PCS; principal; 2020-02-22)
DX: K29.20 Alcoholic gastritis without bleeding (principal); R71.0 Precipitous drop in hematocrit; F10.231 Alcohol dependence with withdrawal delirium; F41.9 Anxiety disorder, unspecified; Y90.9 Presence of alcohol in blood, level not specified; E53.8 Deficiency of other specified B group vitamins; E83.42 Hypomagnesemia; I16.0 Hypertensive urgency; K44.9 Diaphragmatic hernia without obstruction or gangrene; K70.9 Alcoholic liver disease, unspecified; J44.9 Chronic obstructive pulmonary disease, unspecified; F32.9 Major depressive disorder, single episode, unspecified; M81.0 Age-related osteoporosis without current pathological fracture; M79.7 Fibromyalgia; F17.210 Nicotine dependence, cigarettes, uncomplicated; Z20.828 Contact with and (suspected) exposure to other viral communicable diseases; Z90.49 Acquired absence of other specified parts of digestive tract; Z79.899 Other long term (current) drug therapy; Z91.14 Patient's other noncompliance with medication regimen

== ENCOUNTER 2020-02-27 13:42 | Emergency (ER) | payer OTHER ==
[~2020-02-27] VITALS: Ht 170.2 cm; Wt 77.1 kg
[~2020-02-27 13:42] MED LIST changes: +CARAFATE 1 GM TA1 GM PO; +PROTONIX40 M2 PO; +PROTONIX40 MG PO
[2020-02-27 14:05] LABS: ABSOLUTE BASOPHILS 0.1 thou/uL (0.0-0.2); ABSOLUTE EOSINOPHILS 0.2 thou/uL (0.0-0.7); ABSOLUTE LYMPHOCYTES 3.7 thou/uL (0.8-5.3); ABSOLUTE MONOCYTES 0.8 thou/uL (0.0-1.2); ABSOLUTE NEUTROPHILS 3.6 thou/uL (1.6-8.1); BASOPHILS 0.7 %; EOSINOPHILS 2.9 %; HEMATOCRIT 36.2 % (37.0-47.0); HEMOGLOBIN 12.3 gm/dL (12.0-15.0); LYMPHOCYTES 43.5 %; MCH 35.5 pg (26.0-34.0); MCHC 34.1 g/dL (28.0-37.0); MCV 104.3 fL (80.0-100.0); MONOCYTES 9.5 %; MPV 7.8 fl. (7.2-11.1); NUCLEATED RBCS 0 /100WBC; PLATELET COUNT* 284 thou/uL (150-400); POLYS 43.4 %; RBC 3.47 mil/uL (4.20-5.00); RDW-CV 13.8 % (10.5-14.5); WBC 8.4 thou/uL (4.0-11.0)
[2020-02-27 14:15] LABS: CALCIUM 7.7 mg/dL (8.5-10.1); CREATININE 1.1 mg/dL (0.6-1.3)
[2020-02-27 14:16] LABS: POTASSIUM 2.7 mmol/L (3.5-5.1)
[2020-02-27 14:20] LABS: ALBUMIN 3.6 g/dL (3.4-5.0); TOTAL BILIRUBIN 0.2 mg/dL (<0.1-1.0)
--- NOTE | 2020-02-27 15:41 | EKG ---
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: [facility] : 1965 Requested By: Jessica Olivia Order Number: [id number] MD: Edmund Schneider Measurements Intervals [place] Rate: 98 P: 61 MD: 137 QRS: 36 QRSD: 90 T: 32 QT: 373 QTc: 477 Interpretive Statements Sinus rhythm Borderline prolonged QT interval Compared to ECG 02/11/2020 14:23:35 Sinus tachycardia no longer present Electronically Signed On 02-27-2020 15:41:02 SPAR MACHINE OPERATOR by Edmund Schnieder [email or web address] <ELECTRONICALLY SIGNED> By: Edmund Schneider MD, [facility] 02/27/20 1541 1428 142 Edmund Schneider MD, [facility] /EPI
[2020-02-27 23:22] VITALS: BP 115/70
== END 2020-02-27 23:23 | disposition home or self-care (01) ==
LOC: M.ERS 13:42
PROVIDERS: Nurse Practitioner Family
DX: F10.129 Alcohol abuse with intoxication, unspecified (principal); Y90.9 Presence of alcohol in blood, level not specified; J44.9 Chronic obstructive pulmonary disease, unspecified; I10 Essential (primary) hypertension; M79.7 Fibromyalgia; F17.210 Nicotine dependence, cigarettes, uncomplicated; Z90.49 Acquired absence of other specified parts of digestive tract

== ENCOUNTER 2020-03-27 15:42 | Emergency (ER) | payer OTHER ==
[~2020-03-27] VITALS: Ht 170.2 cm; Wt 76.2 kg
[2020-03-27] MEDS ORDERED: ATIVAN1 M1 PO (16:25)
[2020-03-27] MEDS ORDERED: ZOFRAN ODT4 MG SUBLING (16:25)
[2020-03-27 16:36] VITALS: BP 195/105
== END 2020-03-27 16:38 | disposition home or self-care (01) ==
LOC: M.ERS 15:42
DX: F10.10 Alcohol abuse, uncomplicated (principal); J44.9 Chronic obstructive pulmonary disease, unspecified; I10 Essential (primary) hypertension; F17.210 Nicotine dependence, cigarettes, uncomplicated; Z90.49 Acquired absence of other specified parts of digestive tract; Z79.899 Other long term (current) drug therapy; Y90.9 Presence of alcohol in blood, level not specified

== ENCOUNTER → 2020-12-28 | Outpatient (CLI) | payer OTHER ==
[~2020-12-28] MED LIST changes: +ATIVAN1 M1 PO; +ZOFRAN ODT4 MG SUBLING
== END ==
LOC: M.RAD 09:43
PROVIDERS: ATTEND Nurse Practitioner Family
DX: R10.13 Epigastric pain (principal); R13.10 Dysphagia, unspecified

== ENCOUNTER 2021-01-16 17:26 | Inpatient (IN) | payer OTHER ==
[~2021-01-16] VITALS: Ht 170.2 cm; Wt 85.3 kg
--- NOTE | ~2021-01-16 | OP ---
[facility] [address] [place] [address] OPERATIVE REPORT Name: LAM MURILLOELLE Fabio Room: [address]#: [id number] Admission: 01/16/21 Attend Phys: Kayley Cooper Discharge: 01/21/21 Date of : 69 Report #: [id number] THIS REPORT FOR: cc: Kerry Dias Linda J. DO Justice, Michael J. DO ~ DATE OF SURGERY: 01/17/2021 PREOPERATIVE DIAGNOSIS: Closed left comminuted tibial shaft fracture. POSTOPERATIVE DIAGNOSIS: Closed left comminuted tibial shaft fracture. PROCEDURE: Intramedullary nailing, left tibial shaft fracture. IMPLANTS: Synthes suprapatellar intramedullary tibial nail 10 x 345 mm with appropriately sized screws proximally and distally. SURGEON: Jamari Tyler DO LEATHER SOFTENER: ____. ANESTHESIA: General. FLUIDS: Crystalloid. ESTIMATED BLOOD LOSS: 200 mL. DRAINS: None. SPECIMENS: None. COMPLICATIONS: None. CONDITION: Stable. DISPOSITION: PACU to med/surg floor. INDICATIONS: The patient is a pleasant 55-year-old female with issues related to alcohol abuse and chronic pain secondary to fibromyalgia. She sustained a ground level fall yesterday afternoon, which resulted in a closed comminuted distal one-third tibial shaft fracture. She was evaluated in the hospital, where she was recommended for operative stabilization of her leg in the form of an intramedullary nail. She was informed of the risks, benefits and alternatives of this. She verbalized understanding and wanted to proceed. DESCRIPTION OF PROCEDURE: The patient was brought to the operating suite, [place] [id number] OPERATIVE REPORT Name: FOSTER MALONEYPASCUAL Fabio Room: [address]#: [id number] Admission: 01/16/21 Attend Phys: Kayley Cooper Discharge: 01/21/21 Date of : 69 Report #: [id number] placed in supine position on the OR table, given the benefit of general anesthetic. The left lower extremity was prepped and draped in the usual sterile fashion. Timeout was performed to ensure proper operative patient, procedure, and extremity. Once antibiotic administration was verified, we began by making an approximate 3 cm longitudinal incision, 2 fingerbreadths above the superior pole of the patella. We carefully dissected through subcutaneous tissues to identify the quadriceps tendon, which was split in line with our skin incision. We bluntly entered the joint and developed the interval between the patella and the femur. We placed the terrazzo roller device in this plane and established our K-wire position under fluoroscopic guidance in 2 orthogonal planes. Once this was performed satisfactorily, we advanced our guidewire and then overreamed this with the entry reamer. A ball-tipped guidewire was placed down the canal of the tibia and then appropriate reaming was performed. We were able to hold the fracture well reduced during this process. We measured and placed the appropriately sized nail into the tibia. Two lag bolts were placed proximally through the nail and through the aiming arm device. We then placed 3 screws distally with perfect upper skagit technique and using hemostat to spread all soft tissues away from the entry site to help protect the neurovascular bundles. This was all done under fluoroscopic guidance. Appropriately sized screws were placed and overall, we had a very nice reduction and fixation of our fracture. Final x-rays were taken. We irrigated the wounds thoroughly. We closed the quadriceps tenotomy with #1 Vicryl in multiple [id number] fashion, 2-0 Vicryl was used subcuticularly with tato applied to the skin throughout. A sterile dressing was applied. The patient was transferred to PACU in stable condition. By: 99 35Jamari Tyler DO /sheryl
[2021-01-16 17:27] VITALS: BP 83/46
[2021-01-16 18:05] LABS: ABSOLUTE EOSINOPHILS 0.1 thou/uL (0.0-0.7); ABSOLUTE LYMPHOCYTES 1.6 thou/uL (0.8-5.3); ABSOLUTE MONOCYTES 0.5 thou/uL (0.0-1.2); ABSOLUTE NEUTROPHILS 6.7 thou/uL (1.6-8.1); BASOPHILS 0.4 %; EOSINOPHILS 0.6 %; HEMATOCRIT 37.9 % (37.0-47.0); HEMOGLOBIN 13.1 gm/dL (12.0-15.0); LYMPHOCYTES 17.7 %; MCH 36.3 pg (26.0-34.0); MCHC 34.5 g/dL (28.0-37.0); MCV 105.2 fL (80.0-100.0); MONOCYTES 5.8 %; MPV 7.8 fl. (7.2-11.1); NUCLEATED RBCS 0 /100WBC; PLATELET COUNT* 338 thou/uL (150-400); POLYS 75.5 %; RDW-CV 15.1 % (10.5-14.5); WBC 8.8 thou/uL (4.0-11.0)
[2021-01-16 18:12] LABS: CALCIUM 8.4 mg/dL (8.5-10.1); CREATININE 2.4 mg/dL (0.6-1.3); POTASSIUM 3.1 mmol/L (3.5-5.1)
[2021-01-16 18:17] LABS: ALBUMIN 3.6 g/dL (3.4-5.0); TOTAL BILIRUBIN 2.7 mg/dL (<0.1-1.0); TOTAL PROTEIN 7.2 g/dL (6.4-8.2)
[2021-01-16 23:03] VITALS: BP 97/40
[2021-01-17 02:58] VITALS: BP 96/48
[2021-01-17 06:13] VITALS: BP 101/64
[2021-01-17 10:00] VITALS: BP 95/62
[2021-01-17 12:52] LABS: HEMATOCRIT 31.2 % (37.0-47.0); MCH 36.5 pg (26.0-34.0); MCHC 34.7 g/dL (28.0-37.0); MCV 105.2 fL (80.0-100.0); MPV 7.5 fl. (7.2-11.1); NUCLEATED RBCS 0 /100WBC; RBC 2.97 mil/uL (4.20-5.00); RDW-CV 15.1 % (10.5-14.5); WBC 9.6 thou/uL (4.0-11.0)
[2021-01-17 12:53] LABS: HEMOGLOBIN 10.8 gm/dL (12.0-15.0); PLATELET COUNT* 256 thou/uL (150-400)
[2021-01-17 13:06] LABS: PROTIME 10.3 Seconds (9.20-11.50)
[2021-01-17 13:08] LABS: ALBUMIN 3.2 g/dL (3.4-5.0); CREATININE 1.9 mg/dL (0.6-1.3); MAGNESIUM 1.3 mg/dL (1.8-2.4); PHOSPHORUS* 2.1 mg/dL (2.5-4.9); POTASSIUM 3.2 mmol/L (3.5-5.1); TOTAL BILIRUBIN 3.4 mg/dL (<0.1-1.0); TOTAL PROTEIN 6.3 g/dL (6.4-8.2)
[2021-01-17 14:59] VITALS: BP 91/55
[2021-01-17 15:00] VITALS: BP 91/55
[2021-01-17 15:07] LABS: ABSOLUTE MONOCYTES 0.6 thou/uL (0.0-1.2); BASOPHILS 0.4 %; EOSINOPHILS 0.4 %; LYMPHOCYTES 10.1 %; MONOCYTES 5.9 %; POLYS 83.2 %
[2021-01-18] VITALS (7 sets, daily range): BP systolic 86–117; BP diastolic 49–79
[2021-01-18 18:53] LABS: ABSOLUTE LYMPHOCYTES 1.9 thou/uL (0.8-5.3); ABSOLUTE MONOCYTES 0.5 thou/uL (0.0-1.2); BASOPHILS 0.6 %; EOSINOPHILS 0.7 %; HEMATOCRIT 22.6 % (37.0-47.0); LYMPHOCYTES 25.6 %; MCH 36.9 pg (26.0-34.0); MCV 105.6 fL (80.0-100.0); MONOCYTES 6.7 %; NUCLEATED RBCS 0 /100WBC; POLYS 66.4 %; RBC 2.14 mil/uL (4.20-5.00); RDW-CV 15.2 % (10.5-14.5); WBC 7.5 thou/uL (4.0-11.0)
[2021-01-18 18:55] LABS: HEMOGLOBIN 7.9 gm/dL (12.0-15.0)
[2021-01-18 19:00] LABS: PLATELET COUNT* 179 thou/uL (150-400)
[2021-01-18 23:28] LABS: URINE BILIRUBIN NEGATIVE (Negative); URINE BLOOD TRACE (Negative); URINE COLOR YELLOW; URINE GLUCOSE-RANDOM TRACE (Negative); URINE KETONES NEGATIVE (Negative); URINE LEUKOCYTES-REFLEX 1+ (Negative); URINE NITRITE-REFLEX NEGATIVE (Negative); URINE PROTEIN NEGATIVE (Negative); URINE SPECIFIC GRAVITY <= 1.005 (1.005-1.030)
[2021-01-18 23:29] LABS: URINE CLARITY SL CLOUDY
[2021-01-18 23:37] LABS: AMP/METHAMP Negative (Negative); BARBITURATES Negative (Negative); BENZODIAZEPINES POSITIVE (Negative); COCAINE Negative (Negative); METHADONE Negative (Negative); OPIATES Negative (Negative); PCP Negative (Negative); THC Negative (Negative)
[2021-01-18 23:40] LABS: SQUAMOUS 0-3 Few /LPF (0-3); URINE WBC-REFLEX 6-15 Few /HPF (0-5)
[2021-01-18 23:41] LABS: BACTERIA-REFLEX >30 Many /HPF (None Seen); CASTS None Seen /LPF (None Seen); CRYSTALS None Seen /LPF (None Seen); MUCUS 0-3 Light strn/LPF (None Seen); URINE RBC 3-10 Few /HPF (0-2)
[2021-01-19 00:42] VITALS: BP 104/62
[2021-01-19 04:56] LABS: ABSOLUTE EOSINOPHILS 0.1 thou/uL (0.0-0.7); ABSOLUTE LYMPHOCYTES 2.3 thou/uL (0.8-5.3); ABSOLUTE MONOCYTES 0.5 thou/uL (0.0-1.2); ABSOLUTE NEUTROPHILS 4.2 thou/uL (1.6-8.1); BASOPHILS 0.1 %; EOSINOPHILS 0.8 %; LYMPHOCYTES 32.5 %; MCH 37.1 pg (26.0-34.0); MCHC 34.8 g/dL (28.0-37.0); MCV 106.7 fL (80.0-100.0); MONOCYTES 6.4 %; MPV 8.3 fl. (7.2-11.1); NUCLEATED RBCS 0 /100WBC; PLATELET COUNT* 177 thou/uL (150-400); POLYS 60.2 %; RBC 2.16 mil/uL (4.20-5.00); RDW-CV 15.1 % (10.5-14.5)
[2021-01-19 05:17] LABS: APTT 25.3 Seconds (25.0-31.3); PROTIME 9.8 Seconds (9.20-11.50)
[2021-01-19 05:24] LABS: MAGNESIUM 1.3 mg/dL (1.8-2.4); PHOSPHORUS* 2.2 mg/dL (2.5-4.9)
[2021-01-19 05:25] LABS: ALBUMIN 2.4 g/dL (3.4-5.0); CALCIUM 7.9 mg/dL (8.5-10.1); CREATININE 1.2 mg/dL (0.6-1.3); POTASSIUM 3.1 mmol/L (3.5-5.1); TOTAL BILIRUBIN 0.7 mg/dL (<0.1-1.0); TOTAL PROTEIN 5.8 g/dL (6.4-8.2)
[2021-01-19 05:29] VITALS: BP 104/66
[2021-01-19 08:00] VITALS: BP 111/76
[2021-01-19] MEDS ORDERED: PRENATAL PO (09:39)
[2021-01-19 12:00] VITALS: BP 106/61
[2021-01-19 16:00] VITALS: BP 122/76
[2021-01-19 20:20] VITALS: BP 104/76
[2021-01-19 21:49] LABS: MAGNESIUM 1.3 mg/dL (1.8-2.4); PHOSPHORUS* 3.8 mg/dL (2.5-4.9)
[2021-01-20 01:29] VITALS: BP 109/78
[2021-01-20 05:14] VITALS: BP 112/72
[2021-01-20 08:00] VITALS: BP 102/71
[2021-01-20 12:00] VITALS: BP 108/74
[2021-01-20 16:00] VITALS: BP 137/102
[2021-01-20 20:45] VITALS: BP 143/95
[2021-01-21] VITALS: BP 124/59
[2021-01-21 04:00] VITALS: BP 150/97
[2021-01-21 05:26] LABS: HEMATOCRIT 24.2 % (37.0-47.0); HEMOGLOBIN 8.4 gm/dL (12.0-15.0); MCH 36.5 pg (26.0-34.0); MCHC 34.6 g/dL (28.0-37.0); MCV 105.5 fL (80.0-100.0); MPV 8.4 fl. (7.2-11.1); RBC 2.29 mil/uL (4.20-5.00); RDW-CV 14.8 % (10.5-14.5); WBC 5.3 thou/uL (4.0-11.0)
[2021-01-21 05:52] LABS: ALBUMIN 2.6 g/dL (3.4-5.0); CALCIUM 8.7 mg/dL (8.5-10.1); CREATININE 0.8 mg/dL (0.6-1.3); MAGNESIUM 1.4 mg/dL (1.8-2.4); POTASSIUM 3.9 mmol/L (3.5-5.1); TOTAL BILIRUBIN 0.5 mg/dL (<0.1-1.0); TOTAL PROTEIN 6.3 g/dL (6.4-8.2)
[2021-01-21 08:30] VITALS: BP 141/93
[2021-01-21 11:38] VITALS: BP 121/91
[2021-01-21 13:32] VITALS: BP 121/91
[2021-01-21 14:08] VITALS: BP 121/91
[2021-01-22] MEDS ORDERED: PERCOCET PO (09:52)
== END 2021-01-21 15:30 | disposition home health service (06) | DRG 853 ==
LOC: M.ERS 17:26 → M.TBA-ER 18:23 → M.2W 18:23
PROVIDERS: Family Medicine; Internal Medicine; ADMIT Internal Medicine; ATTEND Internal Medicine
PROC: 2W3RX1Z Immobilization of Left Lower Leg using Splint (ICD-10-PCS; principal; 2021-01-16)
PROC: 0QSH04Z Reposition Left Tibia with Internal Fixation Device, Open Approach (ICD-10-PCS; 2021-01-17)
DX: A41.9 Sepsis, unspecified organism (principal); N17.0 Acute kidney failure with tubular necrosis; R65.21 Severe sepsis with septic shock; S82.252A Displaced comminuted fracture of shaft of left tibia, initial encounter for closed fracture; J44.9 Chronic obstructive pulmonary disease, unspecified; F32.9 Major depressive disorder, single episode, unspecified; S82.442A Displaced spiral fracture of shaft of left fibula, initial encounter for closed fracture; F41.9 Anxiety disorder, unspecified; I10 Essential (primary) hypertension; M81.0 Age-related osteoporosis without current pathological fracture; F17.210 Nicotine dependence, cigarettes, uncomplicated; M79.7 Fibromyalgia; G89.29 Other chronic pain; F10.20 Alcohol dependence, uncomplicated; D64.9 Anemia, unspecified; I95.9 Hypotension, unspecified; W18.39XA Other fall on same level, initial encounter; Z90.49 Acquired absence of other specified parts of digestive tract; Z82.49 Family history of ischemic heart disease and other diseases of the circulatory system; Z80.59 Family history of malignant neoplasm of other urinary tract organ; Y93.89 Activity, other specified; Y92.89 Other specified places as the place of occurrence of the external cause; Y99.8 Other external cause status; Z20.822 Contact with and (suspected) exposure to COVID-19

== ENCOUNTER 2021-01-22 09:02 | Emergency (ER) | payer OTHER ==
[~2021-01-22] VITALS: Ht 170.2 cm; Wt 79.4 kg
[~2021-01-22 09:02] MED LIST changes: +PRENATAL PO
[2021-01-22] MEDS ORDERED: PERCOCET PO (09:52)
[2021-01-22 10:49] VITALS: BP 128/78
== END 2021-01-22 10:50 | disposition home or self-care (01) ==
LOC: M.ERS 09:02
DX: S00.93XA Contusion of unspecified part of head, initial encounter (principal); G89.18 Other acute postprocedural pain; M79.605 Pain in left leg; J44.9 Chronic obstructive pulmonary disease, unspecified; F41.9 Anxiety disorder, unspecified; I10 Essential (primary) hypertension; M79.7 Fibromyalgia; M81.0 Age-related osteoporosis without current pathological fracture; F17.210 Nicotine dependence, cigarettes, uncomplicated; Z79.899 Other long term (current) drug therapy; Z90.49 Acquired absence of other specified parts of digestive tract; W01.0XXA Fall on same level from slipping, tripping and stumbling without subsequent striking against object, initial encounter; Y93.89 Activity, other specified; Y92.89 Other specified places as the place of occurrence of the external cause; Y99.8 Other external cause status

== ENCOUNTER 2021-04-02 16:09 | Emergency (ER) | payer OTHER ==
[~2021-04-02] VITALS: Ht 167.6 cm; Wt 95.3 kg
[~2021-04-02 16:09] MED LIST changes: +PERCOCET PO
[2021-04-02 16:17] VITALS: BP 175/91
[2021-04-02 17:23] LABS: URINE BILIRUBIN NEGATIVE (Negative); URINE BLOOD TRACE (Negative); URINE CLARITY CLEAR; URINE COLOR YELLOW; URINE GLUCOSE-RANDOM NEGATIVE (Negative); URINE KETONES NEGATIVE (Negative); URINE LEUKOCYTES-REFLEX NEGATIVE (Negative); URINE NITRITE-REFLEX NEGATIVE (Negative); URINE PROTEIN NEGATIVE (Negative); URINE UROBILINOGEN 0.2 E.U./dl (0.2-1.0)
[2021-04-02 17:32] LABS: AMP/METHAMP Negative (Negative); BARBITURATES Negative (Negative); BENZODIAZEPINES Negative (Negative); COCAINE Negative (Negative); METHADONE Negative (Negative); OPIATES Negative (Negative); PCP Negative (Negative); THC Negative (Negative)
[2021-04-02 17:51] LABS: ABSOLUTE EOSINOPHILS 0.1 thou/uL (0.0-0.7); ABSOLUTE LYMPHOCYTES 4.5 thou/uL (0.8-5.3); ABSOLUTE MONOCYTES 0.5 thou/uL (0.0-1.2); ABSOLUTE NEUTROPHILS 4.8 thou/uL (1.6-8.1); BASOPHILS 0.2 %; EOSINOPHILS 1.2 %; HEMATOCRIT 48.4 % (37.0-47.0); HEMOGLOBIN 16.8 gm/dL (12.0-15.0); LYMPHOCYTES 45.2 %; MCH 34.2 pg (26.0-34.0); MCHC 34.8 g/dL (28.0-37.0); MCV 98.3 fL (80.0-100.0); MONOCYTES 4.9 %; MPV 7.8 fl. (7.2-11.1); NUCLEATED RBCS 0 /100WBC; PLATELET COUNT* 420 thou/uL (150-400); POLYS 48.5 %; RBC 4.92 mil/uL (4.20-5.00); RDW-CV 13.9 % (10.5-14.5); WBC 9.9 thou/uL (4.0-11.0)
[2021-04-02 18:07] LABS: CALCIUM 8.9 mg/dL (8.5-10.1); CREATININE 0.9 mg/dL (0.6-1.3)
[2021-04-02 18:12] LABS: ALBUMIN 4.8 g/dL (3.4-5.0); TOTAL BILIRUBIN 0.4 mg/dL (<0.1-1.0)
[2021-04-02 18:28] LABS: SALICYLATE 4.1 mg/dL (2.8-20.0)
== END 2021-04-02 20:33 | disposition home or self-care (01) ==
LOC: M.ERS 16:09
PROVIDERS: Nurse Practitioner Family
DX: U07.1 COVID-19 (principal); F10.229 Alcohol dependence with intoxication, unspecified; J44.9 Chronic obstructive pulmonary disease, unspecified; I10 Essential (primary) hypertension; F32.9 Major depressive disorder, single episode, unspecified; F41.9 Anxiety disorder, unspecified; M79.7 Fibromyalgia; M81.0 Age-related osteoporosis without current pathological fracture; F17.210 Nicotine dependence, cigarettes, uncomplicated; Z90.49 Acquired absence of other specified parts of digestive tract; Z79.899 Other long term (current) drug therapy; Y90.8 Blood alcohol level of 240 mg/100 ml or more

== ENCOUNTER 2021-04-19 23:14 | Emergency (ER) | payer OTHER ==
[~2021-04-19] VITALS: Ht 170.2 cm; Wt 78.5 kg
[2021-04-20 00:03] LABS: URINE BILIRUBIN NEGATIVE (Negative); URINE BLOOD TRACE (Negative); URINE CLARITY CLEAR; URINE COLOR STRAW; URINE GLUCOSE-RANDOM NEGATIVE (Negative); URINE KETONES NEGATIVE (Negative); URINE LEUKOCYTES-REFLEX NEGATIVE (Negative); URINE NITRITE-REFLEX NEGATIVE (Negative); URINE PROTEIN NEGATIVE (Negative); URINE UROBILINOGEN 0.2 E.U./dl (0.2-1.0)
[2021-04-20 00:21] LABS: AMP/METHAMP Negative (Negative); BARBITURATES Negative (Negative); BENZODIAZEPINES Negative (Negative); COCAINE Negative (Negative); METHADONE Negative (Negative); OPIATES Negative (Negative); PCP Negative (Negative); THC Negative (Negative)
[2021-04-20 00:46] LABS: ABSOLUTE EOSINOPHILS 0.3 thou/uL (0.0-0.7); ABSOLUTE MONOCYTES 0.5 thou/uL (0.0-1.2); ABSOLUTE NEUTROPHILS 2.9 thou/uL (1.6-8.1); BASOPHILS 0.2 %; EOSINOPHILS 3.3 %; HEMATOCRIT 41.5 % (37.0-47.0); HEMOGLOBIN 13.9 gm/dL (12.0-15.0); LYMPHOCYTES 52.2 %; MCH 33.6 pg (26.0-34.0); MCHC 33.6 g/dL (28.0-37.0); MONOCYTES 6.1 %; MPV 7.9 fl. (7.2-11.1); NUCLEATED RBCS 0 /100WBC; PLATELET COUNT* 381 thou/uL (150-400); POLYS 38.2 %; RBC 4.15 mil/uL (4.20-5.00); RDW-CV 14.8 % (10.5-14.5); WBC 7.6 thou/uL (4.0-11.0)
[2021-04-20 00:51] LABS: CREATININE 0.8 mg/dL (0.6-1.3); POTASSIUM 3.9 mmol/L (3.5-5.1)
[2021-04-20 00:53] LABS: ALCOHOL 210 mg/dL (<10); SALICYLATE < 2.8 mg/dL (2.8-20.0)
[2021-04-20 00:56] LABS: TOTAL BILIRUBIN 0.2 mg/dL (<0.1-1.0); TOTAL PROTEIN 7.5 g/dL (6.4-8.2)
[2021-04-20 00:58] LABS: ACETAMINOPHEN < 2 ug/mL (10-30)
[2021-04-20 03:27] VITALS: BP 114/87
--- NOTE | 2021-04-21 13:13 | EKG ---
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: : 1965 Requested By: Phylicia Loco Order Number: [id number] MD: Jamari Griffin Measurements Intervals [place] Rate: 99 P: 76 NV: 130 QRS: 44 QRSD: 78 T: 52 QT: 343 QTc: 441 Interpretive Statements Sinus rhythm Left atrial enlargement Compared to ECG 02/27/2020 14:28:02 Atrial abnormality now present Electronically Signed On 04-21-2021 13:12:59 CORRECTION OFFICER by Jamari Griffin [email or web address] <ELECTRONICALLY SIGNED> By: Jamari Griffin MD, [facility] 04/21/21 1312 2359 [id number] Jamari Griffin MD, FAC /EPI
== END 2021-04-20 03:30 | disposition home or self-care (01) ==
LOC: M.ERS 23:14
PROVIDERS: Emergency Medicine
DX: F10.129 Alcohol abuse with intoxication, unspecified (principal); Z20.822 Contact with and (suspected) exposure to COVID-19; J44.9 Chronic obstructive pulmonary disease, unspecified; F41.9 Anxiety disorder, unspecified; F32.9 Major depressive disorder, single episode, unspecified; I10 Essential (primary) hypertension; M79.7 Fibromyalgia; F17.210 Nicotine dependence, cigarettes, uncomplicated; Z90.49 Acquired absence of other specified parts of digestive tract; Z79.51 Long term (current) use of inhaled steroids; Z79.899 Other long term (current) drug therapy